=== PATIENT | male | born 1980 | race Two or more races ===

== ENCOUNTER 2017-05-27 21:12 | Emergency (ER) | payer OTHER ==
[~2017-05-27] VITALS: Ht 177.8 cm; Wt 110.4 kg
[2017-05-27 21:49] VITALS: BP 126/78
[2017-05-27 22:08] LABS: CULTURE INDICATED? YES; MICROSCOPIC INDICATED
== END 2017-05-27 23:49 | disposition home or self-care (01) ==
LOC: ED 23:40
DX: N30.01 Acute cystitis with hematuria (principal)
CPT/HCPCS: 81001; 87077; 87086; 87186; 99284